=== PATIENT | female | born 1955 | race Hispanic/Latino ===

== ENCOUNTER → 2023-10-20 12:53 | Outpatient (REF) | payer MEDICARE, BC, SELFPAY | LOC: HWRAD 12:53 | PROVIDERS: ATTENDING PHYSICIAN Internal Medicine Hematology & Oncology; FAMILY PHYSICIAN Internal Medicine | DX: C57.4 Malignant neoplasm of uterine adnexa, unspecified (principal); C54.1 Malignant neoplasm of endometrium; C77.5 Secondary and unspecified malignant neoplasm of intrapelvic lymph nodes; C79.82 Secondary malignant neoplasm of genital organs; E03.9 Hypothyroidism, unspecified; Z92.21 Personal history of antineoplastic chemotherapy; Z51.12 Encounter for antineoplastic immunotherapy | CPT/HCPCS: 71260; 74177; Q9967 ==

== ENCOUNTER → 2024-02-10 15:08 | Outpatient (REF) | payer MEDICARE, BC, SELFPAY | LOC: HWRAD 15:08 | PROVIDERS: ATTENDING PHYSICIAN Internal Medicine Endocrinology, Diabetes & Metabolism; FAMILY PHYSICIAN Internal Medicine | DX: E04.2 Nontoxic multinodular goiter (principal) | CPT/HCPCS: 76536 ==

== ENCOUNTER → 2024-03-31 11:17 | Outpatient (REF) | payer MEDICARE, BC, SELFPAY | LOC: RAD 11:17 | PROVIDERS: ATTENDING PHYSICIAN Internal Medicine Hematology & Oncology; FAMILY PHYSICIAN Internal Medicine | DX: C57.4 Malignant neoplasm of uterine adnexa, unspecified (principal) | CPT/HCPCS: 71260; 74177; Q9967 ==

== ENCOUNTER → 2024-07-26 11:14 | Outpatient (REF) | payer MEDICARE, BC, SELFPAY | LOC: RAD 11:14 | PROVIDERS: ATTENDING PHYSICIAN Internal Medicine Hematology & Oncology; FAMILY PHYSICIAN Internal Medicine | DX: C57.4 Malignant neoplasm of uterine adnexa, unspecified (principal); C54.1 Malignant neoplasm of endometrium; C77.5 Secondary and unspecified malignant neoplasm of intrapelvic lymph nodes; C79.82 Secondary malignant neoplasm of genital organs; E03.9 Hypothyroidism, unspecified; Z92.21 Personal history of antineoplastic chemotherapy; Z51.12 Encounter for antineoplastic immunotherapy; E55.9 Vitamin D deficiency, unspecified; Z79.899 Other long term (current) drug therapy; R79.9 Abnormal finding of blood chemistry, unspecified; R53.83 Other fatigue; Z79.811 Long term (current) use of aromatase inhibitors; D50.9 Iron deficiency anemia, unspecified | CPT/HCPCS: 71260; 74177; Q9967 ==

== ENCOUNTER → 2024-11-01 12:19 | Outpatient (REF) | payer MEDICARE, BC, SELFPAY | LOC: RAD 12:19 | PROVIDERS: ATTENDING PHYSICIAN Internal Medicine Hematology & Oncology; FAMILY PHYSICIAN Internal Medicine | DX: C57.4 Malignant neoplasm of uterine adnexa, unspecified (principal); C54.1 Malignant neoplasm of endometrium; C77.5 Secondary and unspecified malignant neoplasm of intrapelvic lymph nodes; C79.82 Secondary malignant neoplasm of genital organs; E03.9 Hypothyroidism, unspecified; Z92.21 Personal history of antineoplastic chemotherapy; Z51.12 Encounter for antineoplastic immunotherapy; E55.9 Vitamin D deficiency, unspecified; Z79.899 Other long term (current) drug therapy; R79.9 Abnormal finding of blood chemistry, unspecified; R53.83 Other fatigue; Z79.811 Long term (current) use of aromatase inhibitors; D50.9 Iron deficiency anemia, unspecified | CPT/HCPCS: 71260; 74177; Q9967 ==